=== PATIENT | female | born 1995 | race Hispanic/Latino ===

== ENCOUNTER 2017-03-29 12:18 | Emergency (ER) | payer MEDICAID, OTHER ==
[~2017-03-29 12:18] MED LIST: FERR325T22 PO; IBUP-2077 PO
[2017-03-29 12:51] LABS: BASOPHILS % (AUTO) 0.6 % (0.0-5.0); EOSINOPHILS % (AUTO) 1.9 % (0.0-8.0); LYMPHOCYTES % (AUTO) 34.1 % (21.0-51.0); MEAN CORPUSCULAR HEMOGLOBIN 26.5 pg (27.0-33.0); MEAN CORPUSCULAR HGB CONC 33.6 g/dL (32.0-36.0); MONOCYTES % (AUTO) 7.5 % (3.0-13.0); NEUTROPHILS % (AUTO) 55.9 % (40.0-77.0); PLATELET COUNT (AUTO) 308 K/uL (130-400); RED BLOOD CELL COUNT(AUTO) 4.31 MIL/uL (4.00-5.50); RED CELL DISTRIBUTION WIDTH 13.8 % (11.0-15.5); WHITE BLOOD COUNT (AUTO) 7.1 K/uL (4.8-10.8)
[2017-03-29 14:08] LABS: APPEARANCE,URINE Cloudy (CLEAR); BILIRUBIN,URINE Negative (NEGATIVE); COLOR,URINE Yellow (YELLOW); GLUCOSE, URINE (UA) Negative (NEGATIVE); KETONES,URINE >=80 mg/dL (NEGATIVE); LEUKOCYTE ESTERASE ,URINE Small (NEGATIVE); NITRATE,URINE Negative (NEGATIVE); OCCULT BLOOD,URINE Negative (NEGATIVE); PH,URINE 5.5 (5.0-8.0); PROTEIN,URINE Negative (NEGATIVE)
[2017-03-29 14:24] LABS: BACTERIA,URINE Few /HPF (None Seen); SQUAMOUS EPITHELIAL CELL,UR 30-50 /LPF (0-2)
[2017-03-29 14:25] LABS: RBC,URINE 0-1 /HPF (0-1)
== END 2017-03-29 14:32 | disposition home or self-care (01) ==
LOC: EDH 12:18
DX: O20.0 Threatened abortion (principal); O23.41 Unspecified infection of urinary tract in pregnancy, first trimester; Z3A.00 Weeks of gestation of pregnancy not specified
CPT/HCPCS: 36415; 76817; 81001; 84702; 85025; 86900; 86901

== ENCOUNTER 2017-05-10 20:59 | Emergency (ER) | payer MEDICAID ==
[2017-05-10 22:58] LABS: BASOPHILS % (AUTO) 0.3 % (0.0-5.0); EOSINOPHILS % (AUTO) 1.8 % (0.0-8.0); HEMATOCRIT 36.4 % (36-48); LYMPHOCYTES % (AUTO) 36.7 % (21.0-51.0); MEAN CORPUSCULAR HEMOGLOBIN 27.1 pg (27.0-33.0); MEAN CORPUSCULAR HGB CONC 33.4 g/dL (32.0-36.0); MEAN CORPUSCULAR VOLUME 81.1 fL (80-100); MONOCYTES % (AUTO) 6.9 % (3.0-13.0); NEUTROPHILS % (AUTO) 54.3 % (40.0-77.0); PLATELET COUNT (AUTO) 335 K/uL (130-400); RED BLOOD CELL COUNT(AUTO) 4.49 MIL/uL (4.00-5.50); RED CELL DISTRIBUTION WIDTH 13.1 % (11.0-15.5); WHITE BLOOD COUNT (AUTO) 8.7 K/uL (4.8-10.8)
[2017-05-10 22:59] LABS: APPEARANCE,URINE Cloudy (CLEAR); BILIRUBIN,URINE Negative (NEGATIVE); COLOR,URINE Yellow (YELLOW); GLUCOSE, URINE (UA) Negative (NEGATIVE); KETONES,URINE Negative (NEGATIVE); LEUKOCYTE ESTERASE ,URINE Moderate (NEGATIVE); NITRATE,URINE Negative (NEGATIVE); OCCULT BLOOD,URINE Negative (NEGATIVE); PROTEIN,URINE Negative (NEGATIVE)
[2017-05-10 23:04] LABS: CREATININE 0.5 mg/dL (0.5-1.5); POTASSIUM 3.6 mmol/L (3.5-5.1)
[2017-05-10 23:13] LABS: BACTERIA,URINE Few /HPF (None Seen); MUCUS,URINE Moderate LPF (None Seen); RBC,URINE 0-1 /HPF (0-1); SQUAMOUS EPITHELIAL CELL,UR Many /LPF (0-2)
[2017-05-10 23:14] LABS: AMORPHOUS SEDIMENT,UR Many /LPF (None Seen)
== END 2017-05-11 01:23 | disposition home or self-care (01) ==
LOC: EDH 20:59
DX: O20.0 Threatened abortion (principal); Z3A.10 10 weeks gestation of pregnancy
CPT/HCPCS: 36415; 76801; 80048; 81001; 83033; 84702; 85025; 86900; 86901; 96372; 99285; J2791

== ENCOUNTER 2017-06-03 14:45 | Emergency (ER) | payer MEDICAID | END 2017-06-03 16:01 | disposition home or self-care (01) | LOC: EDH 14:45 | DX: O26.892 Other specified pregnancy related conditions, second trimester (principal); B00.9 Herpesviral infection, unspecified; Z3A.14 14 weeks gestation of pregnancy ==

== ENCOUNTER 2017-06-19 21:18 | Emergency (ER) | payer MEDICAID | END 2017-06-20 00:39 | disposition home or self-care (01) | LOC: EDH 21:18 | DX: O20.0 Threatened abortion (principal); Z3A.17 17 weeks gestation of pregnancy; Z67.91 Unspecified blood type, Rh negative | CPT/HCPCS: 36415; 76805; 83033; 86900; 86901; 96372; 99285; J2791 ==

== ENCOUNTER 2017-08-26 21:50 | Observation (INO) | payer MEDICAID ==
[2017-08-26] MEDS ORDERED: LACTATED RINGERS 1000ML 1,000 ML IV SCH (22:00)
[2017-08-26 22:46] LABS: BILIRUBIN,URINE Negative (NEGATIVE); COLOR,URINE Yellow (YELLOW); GLUCOSE, URINE (UA) Negative (NEGATIVE); KETONES,URINE Negative (NEGATIVE); LEUKOCYTE ESTERASE ,URINE Small (NEGATIVE); NITRATE,URINE Positive (NEGATIVE); OCCULT BLOOD,URINE Negative (NEGATIVE); PROTEIN,URINE Negative (NEGATIVE)
[2017-08-26 22:47] LABS: APPEARANCE,URINE SLIGHTLY CLOUDY (CLEAR)
[2017-08-26 23:09] LABS: AMORPHOUS SEDIMENT,UR Moderate /LPF (None Seen); BACTERIA,URINE Few /HPF (None Seen); MUCUS,URINE Rare LPF (None Seen); RBC,URINE 0-1 /HPF (0-1)
[2017-08-27] MEDS ORDERED: CEFTRIAXONE 1GM/D5W 50ML 50 ML IV SCH
[2017-08-27] MEDS ORDERED: LACTATED RINGERS 1000ML IV PRN
[2017-08-27] MEDS ORDERED: CEFTRIAXONE SODIUM 1 GM IVP SCH (01:00)
== END 2017-08-27 02:30 | disposition home or self-care (01) ==
LOC: EDH 21:50 → LDH 21:51
PROVIDERS: ADMIT Obstetrics & Gynecology; ATTEND Obstetrics & Gynecology
DX: O26.893 Other specified pregnancy related conditions, third trimester (principal); R10.2 Pelvic and perineal pain; Z3A.25 25 weeks gestation of pregnancy
CPT/HCPCS: 81001; 96361; 96374; 99285; G0378 ×5; J0696 ×2; 96360

== ENCOUNTER 2019-06-12 07:21 | Observation (INO) | payer MEDICAID ==
[~2019-06-12] VITALS: Ht 162.6 cm; Wt 94.8 kg
[2019-06-12 08:04] LABS: APPEARANCE,URINE Clear (CLEAR); BILIRUBIN,URINE Negative (NEGATIVE); COLOR,URINE Yellow (YELLOW); GLUCOSE, URINE (UA) Negative (NEGATIVE); KETONES,URINE Negative (NEGATIVE); LEUKOCYTE ESTERASE ,URINE Negative (NEGATIVE); NITRATE,URINE Negative (NEGATIVE); OCCULT BLOOD,URINE Negative (NEGATIVE); PROTEIN,URINE Negative (NEGATIVE)
[2019-06-12 08:45] LABS: AMPHET/METH SCREEN,URINE NEGATIVE (NEGATIVE); BARBITURATE SCREEN, URINE NEGATIVE (NEGATIVE); BENZODIAZEPINES SCREEN,URINE NEGATIVE (NEGATIVE); CANNABINOID SCREEN,URINE NEGATIVE (NEGATIVE); COCAINE SCREEN,URINE NEGATIVE (NEGATIVE); OPIATE SCREEN,URINE NEGATIVE (NEGATIVE); PHENCYCLIDINE SCREEN,URINE NEGATIVE (NEGATIVE)
[2019-06-12 09:10] VITALS: BP 108/72
== END 2019-06-12 09:29 | disposition home or self-care (01) ==
LOC: LDH 07:21
PROVIDERS: ADMIT Obstetrics & Gynecology; ATTEND Obstetrics & Gynecology
DX: O80 Encounter for full-term uncomplicated delivery (principal); Z3A.38 38 weeks gestation of pregnancy; Z37.0 Single live birth
CPT/HCPCS: 80305; 81003; G0378

== ENCOUNTER 2019-08-17 14:55 | Observation (INO) | payer MEDICAID ==
[2019-08-17 15:51] LABS: APPEARANCE,URINE Clear (CLEAR); BILIRUBIN,URINE Negative (NEGATIVE); COLOR,URINE Yellow (YELLOW); GLUCOSE, URINE (UA) Negative (NEGATIVE); KETONES,URINE Trace mg/dL (NEGATIVE); LEUKOCYTE ESTERASE ,URINE Trace (NEGATIVE); NITRATE,URINE Negative (NEGATIVE); OCCULT BLOOD,URINE Negative (NEGATIVE); PROTEIN,URINE Negative (NEGATIVE)
[2019-08-17 15:58] LABS: AMPHET/METH SCREEN,URINE NEGATIVE (NEGATIVE); BARBITURATE SCREEN, URINE NEGATIVE (NEGATIVE); BENZODIAZEPINES SCREEN,URINE NEGATIVE (NEGATIVE); CANNABINOID SCREEN,URINE NEGATIVE (NEGATIVE); COCAINE SCREEN,URINE NEGATIVE (NEGATIVE); OPIATE SCREEN,URINE NEGATIVE (NEGATIVE); PHENCYCLIDINE SCREEN,URINE NEGATIVE (NEGATIVE)
[2019-08-17 16:24] LABS: BACTERIA,URINE Few /HPF (None Seen); MUCUS,URINE Few LPF (None Seen); SQUAMOUS EPITHELIAL CELL,UR Moderate /HPF (0-2)
== END 2019-08-17 18:06 | disposition home or self-care (01) ==
LOC: EDH 14:55 → LDH 14:56
PROVIDERS: ADMIT Obstetrics & Gynecology; ATTEND Obstetrics & Gynecology
DX: O99.513 Diseases of the respiratory system complicating pregnancy, third trimester (principal); R06.02 Shortness of breath; R10.2 Pelvic and perineal pain; Z3A.35 35 weeks gestation of pregnancy
CPT/HCPCS: 80305; 81001; 96360; 99284; G0378 ×3; J7120

== ENCOUNTER 2019-09-17 16:10 | Observation (INO) | payer MEDICAID ==
[~2019-09-17] VITALS: Ht 162.6 cm; Wt 99.8 kg
[2019-09-17] MEDS ORDERED: ACETAMINOPHEN 325 MG TAB ONE ×2 (17:07→22:16)
[2019-09-17 18:35] LABS: HEMATOCRIT 28.9 % (36-48); MEAN CORPUSCULAR HEMOGLOBIN 23.6 pg (27.0-33.0); MEAN CORPUSCULAR HGB CONC 32.2 g/dL (32.0-36.0); MEAN CORPUSCULAR VOLUME 73.4 fL (79-99); PLATELET COUNT (AUTO) 204 K/uL (130-400); RED BLOOD CELL COUNT(AUTO) 3.94 MIL/uL (4.00-5.50); RED CELL DISTRIBUTION WIDTH 13.9 % (11.0-15.5); WHITE BLOOD COUNT (AUTO) 6.3 K/uL (4.8-10.8)
[2019-09-17 21:06] LABS: APPEARANCE,URINE Clear (CLEAR); BILIRUBIN,URINE Negative (NEGATIVE); COLOR,URINE Yellow (YELLOW); GLUCOSE, URINE (UA) Negative (NEGATIVE); KETONES,URINE 15 mg/dL (NEGATIVE); LEUKOCYTE ESTERASE ,URINE Small (NEGATIVE); NITRATE,URINE Negative (NEGATIVE); OCCULT BLOOD,URINE Negative (NEGATIVE); PH,URINE 6.5 (5.0-8.0); PROTEIN,URINE Negative (NEGATIVE)
[2019-09-17 21:49] LABS: BACTERIA,URINE Few /HPF (None Seen); RBC,URINE 0-1 /HPF (0-1)
[2019-09-17 21:50] LABS: SQUAMOUS EPITHELIAL CELL,UR Few /HPF (0-2)
[2019-09-17] MEDS ORDERED: AMPICILLIN 2GM+NS 100ML 100 ML IV SCH (22:00)
[2019-09-17] MEDS ORDERED: AMPICILLIN 2GM+NS 100ML 100 ML IV ONE (22:12)
[2019-09-18] MEDS: ACETAMINOPHEN 325 MG TAB PO PRN ×2 (01:25→20:58)
[2019-09-18] MEDS ORDERED: AMPICILLIN 1GM+NS 50ML 50 ML IV SCH (02:00)
[2019-09-18] MEDS ORDERED: AZITHROMYCIN 250 MG TABLET PO SCH (08:30)
[2019-09-18 09:15] VITALS: BP 116/64
[2019-09-18] MEDS ORDERED: LOPERAMIDE HCL 2 MG CAP PO PRN (19:15)
[2019-09-18] MEDS: LACTATED RINGERS 1000ML 1,000 ML IV PRN (19:38)
[2019-09-18] MEDS: OSELTAMIVIR PHOSPHATE 75 MG CAP PO SCH ×2 (20:59→21:00)
[2019-09-19] MEDS: ACETAMINOPHEN 325 MG TAB PO PRN ×3 (00:39→08:39)
[2019-09-19] MEDS: LACTATED RINGERS 1000ML 1,000 ML IV PRN (04:46)
[2019-09-19 07:15] LABS: HEPATITIS Bs ANTIGEN SCREEN P Negative (Negative)
[2019-09-19] MEDS ORDERED: AZITHROMYCIN 250 MG TABLET PO SCH (08:30)
[2019-09-19] MEDS: OSELTAMIVIR PHOSPHATE 75 MG CAP PO SCH (08:38)
== END 2019-09-19 15:20 | disposition home or self-care (01) ==
LOC: EDH 16:10 → LDH 17:45
PROVIDERS: ADMIT Obstetrics & Gynecology; ATTEND Obstetrics & Gynecology
DX: Z03.818 Encounter for observation for suspected exposure to other biological agents ruled out (principal); O98.513 Other viral diseases complicating pregnancy, third trimester; R10.9 Unspecified abdominal pain; R00.0 Tachycardia, unspecified; B34.9 Viral infection, unspecified; Z3A.37 37 weeks gestation of pregnancy
CPT/HCPCS: 36415 ×2; 76805; 81001; 85027; 86592; 87340; 87804 ×2; 96361 ×3; 96365; 96376; 99284; A4510; A4600; G0378 ×7; J0290 ×3; J7120 ×3; U0003; 96360

== ENCOUNTER 2022-03-06 23:14 | Emergency (ER) | payer MEDICAID ==
[2022-03-06 23:45] LABS: APPEARANCE,URINE CLEAR (CLEAR); BILIRUBIN,URINE NEGATIVE (NEGATIVE); GLUCOSE, URINE (UA) NEGATIVE (NEGATIVE); KETONES,URINE NEGATIVE (NEGATIVE); LEUKOCYTE ESTERASE ,URINE NEGATIVE Leu/uL (NEGATIVE); NITRATE,URINE NEGATIVE (NEGATIVE); PH,URINE 6.5 (5.0-8.0); PROTEIN,URINE NEGATIVE (NEGATIVE); UROBILINOGEN,URINE 0.2 mg/dL (0.2-1.0)
[2022-03-06 23:49] LABS: COLOR,URINE Light-Yellow (YELLOW)
[2022-03-06 23:50] LABS: BASOPHILS % (AUTO) 0.4 % (0.0-5.0); EOSINOPHILS % (AUTO) 2.3 % (0.0-8.0); HEMATOCRIT 36.1 % (36-48); LYMPHOCYTES % (AUTO) 31.8 % (21.0-51.0); MEAN CORPUSCULAR HEMOGLOBIN 26.6 pg (27.0-33.0); MEAN CORPUSCULAR HGB CONC 32.7 g/dL (32.0-36.0); MEAN CORPUSCULAR VOLUME 81.5 fL (79-99); MONOCYTES % (AUTO) 7.7 % (3.0-13.0); NEUTROPHILS % (AUTO) 57.6 % (40.0-77.0); PLATELET COUNT (AUTO) 349 K/uL (130-400); RED BLOOD CELL COUNT(AUTO) 4.43 MIL/uL (4.00-5.50); RED CELL DISTRIBUTION WIDTH 13.4 % (11.0-15.5); WHITE BLOOD COUNT (AUTO) 9.4 K/uL (4.8-10.8)
[2022-03-06 23:51] LABS: RBC,URINE 0-1 /HPF (0-1); SQUAMOUS EPITHELIAL CELL,UR MOD /HPF (0-2)
[2022-03-06 23:52] LABS: AMPHET/METH SCREEN,URINE NEGATIVE (NEGATIVE); BARBITURATE SCREEN, URINE NEGATIVE (NEGATIVE); BENZODIAZEPINES SCREEN,URINE NEGATIVE (NEGATIVE); CANNABINOID SCREEN,URINE NEGATIVE (NEGATIVE); COCAINE SCREEN,URINE NEGATIVE (NEGATIVE); OPIATE SCREEN,URINE NEGATIVE (NEGATIVE); PHENCYCLIDINE SCREEN,URINE NEGATIVE (NEGATIVE)
[2022-03-06 23:58] LABS: CREATININE 0.6 mg/dL (0.5-1.5); POTASSIUM 3.9 mmol/L (3.5-5.1)
[2022-03-07 00:05] LABS: ALBUMIN 3.5 g/dL (3.5-5.0); TOTAL PROTEIN, SERUM 7.7 g/dL (6.0-8.3)
[2022-03-07] MEDS ORDERED: IBUP-1493 PO (00:11)
[2022-03-07] MEDS ORDERED: CYCL-309 PO (00:11)
[2022-03-07 01:45] VITALS: BP 118/62
== END 2022-03-07 02:12 | disposition home or self-care (01) ==
LOC: EDH 23:14
DX: R07.89 Other chest pain (principal); Z79.1 Long term (current) use of non-steroidal anti-inflammatories (NSAID); Z79.899 Other long term (current) drug therapy
CPT/HCPCS: 36415; 71045; 71101; 80053; 80305; 81001; 81025; 84484; 85025; 93005

== ENCOUNTER 2022-07-06 07:56 | Emergency (ER) | payer MEDICAID ==
[~2022-07-06] VITALS: Ht 162.6 cm; Wt 90.7 kg
[~2022-07-06 07:56] MED LIST changes: +CYCL-309 PO; +IBUP-1493 PO
[2022-07-06 07:58] VITALS: BP 123/75
[2022-07-06 08:26] LABS: HCG,QUALITATIVE URINE NEGATIVE (NEGATIVE)
[2022-07-06 08:29] LABS: APPEARANCE,URINE TURBID (CLEAR); BILIRUBIN,URINE NEGATIVE (NEGATIVE); COLOR,URINE DARK-BROWN (YELLOW); GLUCOSE, URINE (UA) NEGATIVE (NEGATIVE); KETONES,URINE 5 mg/dL (NEGATIVE); LEUKOCYTE ESTERASE ,URINE 250 Leu/uL (NEGATIVE); NITRATE,URINE NEGATIVE (NEGATIVE); OCCULT BLOOD,URINE LARGE (NEGATIVE); PH,URINE 5.5 (5.0-8.0); PROTEIN,URINE 70 mg/dL (NEGATIVE); UROBILINOGEN,URINE 0.2 mg/dL (0.2-1.0)
[2022-07-06] MEDS ORDERED: PHEN-847 PO (08:46)
[2022-07-06] MEDS ORDERED: CEPH500B PO (08:46)
[2022-07-06 08:55] LABS: MUCUS,URINE FEW LPF (None Seen); RBC,URINE TNTC /HPF (0-1); SQUAMOUS EPITHELIAL CELL,UR MANY /HPF (0-2); WBC,URINE TNTC /HPF (0-1); YEAST,URINE BUDDING RARE /HPF (None Seen)
[2022-07-06] MEDS ORDERED: CEFTRIAXONE 1G VIAL IVPB ONE (09:00)
[2022-07-06] MEDS ORDERED: LIDOCAINE HCL 1% 20 ML VIAL ONE (09:15)
== END 2022-07-06 09:27 | disposition home or self-care (01) ==
LOC: EDH 07:56
DX: N39.0 Urinary tract infection, site not specified (principal); Z79.899 Other long term (current) drug therapy
CPT/HCPCS: 99284; 96365; 87088; 81001; 81025; J0696

== ENCOUNTER 2023-01-28 21:45 | Emergency (ER) | payer MEDICAID, OTHER ==
[~2023-01-28] VITALS: Ht 165.1 cm; Wt 79.4 kg
[~2023-01-28 21:45] MED LIST changes: +CEPH500B PO; +PHEN-847 PO
[2023-01-28 21:52] VITALS: BP 108/67; PULSE 93; RESP 18; O2SAT 98
[2023-01-28 22:08] LABS: ADD UA MICROSCOPIC YES; APPEARANCE,URINE CLOUDY (CLEAR); BILIRUBIN,URINE NEGATIVE (NEGATIVE); COLOR,URINE LIGHT-YELLOW (YELLOW); GLUCOSE, URINE (UA) NEGATIVE (NEGATIVE); KETONES,URINE NEGATIVE (NEGATIVE); LEUKOCYTE ESTERASE ,URINE 500 Leu/uL (NEGATIVE); NITRATE,URINE NEGATIVE (NEGATIVE); OCCULT BLOOD,URINE NEGATIVE (NEGATIVE); PH,URINE 5.5 (5.0-8.0); PROTEIN,URINE 20 mg/dL (NEGATIVE); UROBILINOGEN,URINE 0.2 mg/dL (0.2-1.0)
[2023-01-28 22:11] LABS: BACTERIA,URINE RARE /HPF (None Seen); MUCUS,URINE RARE LPF (None Seen); SQUAMOUS EPITHELIAL CELL,UR MOD /HPF (0-2); WBC,URINE 26-50 /HPF (0-1); YEAST,URINE BUDDING RARE /HPF (None Seen)
[2023-01-28] MEDS ORDERED: IBUPROFEN 800 MG TAB PO ONE (22:30)
[2023-01-29] MEDS ORDERED: AMOX1TAB16 PO (00:12)
[2023-01-29] MEDS ORDERED: AMOX/CLAV 875/125MG TAB PO ONE (00:30)
== END 2023-01-29 00:24 | disposition home or self-care (01) ==
LOC: EDH 21:45
DX: N39.0 Urinary tract infection, site not specified (principal); R30.0 Dysuria; Z79.899 Other long term (current) drug therapy; Z90.89 Acquired absence of other organs; Z98.890 Other specified postprocedural states
CPT/HCPCS: 81001; 81025; 87088